=== PATIENT | female | born 1975 | race Caucasian/White ===

== ENCOUNTER 2016-09-19 08:00 | Outpatient (CLI) | payer BC, OTHER | END 2016-09-19 08:01 | disposition home or self-care (01) | DX: M12.872 Other specific arthropathies, not elsewhere classified, left ankle and foot (principal) ==

== ENCOUNTER 2018-02-19 12:42 | Outpatient (CLI) | payer OTHER ==
--- NOTE | 2018-02-19 22:04 | MRI Report ---
Reason: CERVICAL RADICULOPATHY Procedure Date: 02/19/2018 Accession Number: [id number] / [id number] Procedure: MRI - Cervical Spine W/O CPT Code: FULL RESULT: EXAM: MRI CERVICAL SPINE WITHOUT CONTRAST EXAM DATE: 02/19/2018 01:26 PM. CLINICAL HISTORY: Cervical radiculopathy. COMPARISONS: There are 4 views of the cervical spine 01/05/2018. TECHNIQUE: Multiplanar, multisequence T1-weighted and fluid-sensitive sequences of the cervical spine without contrast. Other: None. FINDINGS: The craniocervical junction is normal. There are normal signal intensities demonstrated throughout the cervical spinal cord. There is straightening of the normal cervical lordosis. There is a mild decrease in the height of the disk at C4-C5, C5-C6, and C6-C7. There is mild endplate spondylosis. There is a nonspecific T2 hyperintense left thyroid lobe nodule measuring 6 x 6 x 6 mm. This does not reach current size criteria for the recommendation for additional characterization with thyroid ultrasound according to current imaging recommendation guidelines for incidental thyroid nodules. The bone marrow signal intensities are normal. C2-C3: There is no significant disk bulge, central or foraminal stenosis. The facets are normal. C3-C4: There is no significant disk bulge, central or foraminal stenosis. The facets are normal. C4-C5: There is no significant disk bulge, central or foraminal stenosis. The facets are normal. C5-C6: There is a small disk osteophyte complex producing minimal central canal stenosis. There is mild narrowing of the right neural foramen from uncovertebral hypertrophy. The facets are normal. C6-C7: There is a small disk osteophyte complex with superimposed right paracentral extrusion of the disk producing a mild central canal stenosis. There is no significant foraminal stenosis. The facets are normal. C7-T1: There is no significant disk bulge, central or foraminal stenosis. The facets are normal. T1-T2: There is no significant disk bulge, central or foraminal stenosis. The facets are normal. IMPRESSION: 1. There is a minimal central canal stenosis from a small disk osteophyte complex C5-C6. 2. There is a small disk osteophyte complex with superimposed right paracentral extrusion of the disk producing a mild central canal stenosis.
== END 2018-02-19 12:43 | disposition home or self-care (01) ==
LOC: DI 12:42
PROVIDERS: ATTEND Family Medicine
DX: M50.223 Other cervical disc displacement at C6-C7 level (principal); M47.9 Spondylosis, unspecified; M48.02 Spinal stenosis, cervical region
CPT/HCPCS: 72141

== ENCOUNTER 2021-02-11 08:00 | Outpatient (CLI) | payer OTHER ==
[2021-02-11 12:10] LABS: ALBUMIN 4.8 g/dL (3.2-5.5); ALBUMIN/GLOBULIN RATIO 1.3 (1.0-2.2); BILIRUBIN,TOTAL 0.8 mg/dL (0.2-1.0); CALCIUM 10.1 mg/dL (8.5-10.3); CREATININE 0.7 mg/dL (0.4-1.0); POTASSIUM 4.6 mmol/L (3.5-5.0); TOTAL PROTEIN 8.5 g/dL (6.7-8.2)
[2021-02-11 12:28] LABS: BASOPHILS # (AUTO) 0.1 10^3/uL (0.0-0.1); EOSINOPHILS # (AUTO) 0.3 10^3/uL (0.0-0.7); EOSINOPHILS % (AUTO) 2.3 %; HCT - HEMATOCRIT 47.1 % (37.0-47.0); HGB - HEMOGLOBIN 15.6 g/dL (12.0-16.0); LYMPHOCYTES # (AUTO) 3.2 10^3/uL (1.5-3.5); LYMPHOCYTES % (AUTO) 29.1 %; MEAN CORPUSCULAR HEMOGLOBIN 32.2 pg (27.0-31.0); MEAN CORPUSCULAR HGB CONC 33.1 g/dL (32.0-36.0); MEAN CORPUSCULAR VOLUME 97.3 fL (81.0-99.0); MONOCYTES # (AUTO) 0.6 10^3/uL (0.0-1.0); MONOCYTES % (AUTO) 5.7 %; NEUTROPHILS # (AUTO) 6.8 10^3/uL (1.5-6.6); NEUTROPHILS % (AUTO) 61.7 %; PLT - PLATELET COUNT 340 10^3/uL (130-450); RED BLOOD COUNT 4.84 10^6/uL (4.20-5.40); RED CELL DISTRIBUTION WIDTH 12.5 % (12.0-15.0)
[2021-02-11 12:33] LABS: THYROID STIMULATING HORMONE 2.42 uIU/mL (0.34-5.60)
[2021-02-11 13:02] LABS: FOLLICLE STIMULATING HORMONE 35.66 mIU/mL
== END 2021-02-11 23:59 | disposition home or self-care (01) ==
LOC: LAB.WCP 08:00
PROVIDERS: ATTEND Family Medicine
DX: N95.1 Menopausal and female climacteric states (principal); H04.123 Dry eye syndrome of bilateral lacrimal glands
CPT/HCPCS: 36415; 80053; 81599; 83001; 84443; 85025; 86235

== ENCOUNTER 2022-05-05 06:54 | Outpatient (CLI) | payer OTHER ==
--- NOTE | 2022-05-05 09:48 | Ultrasound Report ---
PROCEDURE: Abdomen Limited INDICATIONS: SPLENIC LESION TECHNIQUE: Real-time focused scanning was performed of the abdomen, with image documentation. COMPARISON: Abdominal ultrasound from [facility] dated 06/11/2018. CT abdomen pelvis from [facility] dated 11/29/2017. FINDINGS: The spleen is normal size, 9.0 cm in length. A possible splenic lesion is present on cine images, krys suring 1.0 cm on image 26. This may correspond to a lesion measuring 1.3 cm on the prior ultrasound. The second splenic lesion seen previously is not identified. IMPRESSION: Possible splenic lesion present which may have slightly decreased compared to the prior ultrasound. T he previously demonstrated second splenic lesion is not identified, unclear if this represents interv al resolution or if the finding was not identified due to technical factors. If further follow-up donny ging is desired, consider CT of the abdomen with contrast to assess for changes in size. It is often difficult or not possible to definitively characterize splenic lesions by imaging alone. Reviewed by: Jarret Barrow MD on 05/05/2022 9:46 AM PST Approved by: Jarret Barrow MD on 05/05/2022 9:46 AM PST Station ID: [id number]
== END 2022-05-05 06:55 | disposition home or self-care (01) ==
LOC: DI 06:54
PROVIDERS: ATTEND Physician Assistant
DX: R93.5 Abnormal findings on diagnostic imaging of other abdominal regions, including retroperitoneum (principal)

== ENCOUNTER 2022-05-05 06:55 | Outpatient (CLI) | payer OTHER ==
--- NOTE | 2022-05-10 10:16 | Mammography Report ---
BILATERAL DIGITAL SCREENING MAMMOGRAM 3D/2D: 05/05/2022 CLINICAL: Routine screening. Baseline exam. No prior exams were available for comparison. Both breasts are heterogeneously dense, which may obscure small masses (category c / 51-75% glandular tissue). No significant masses, calcifications, or other findings are seen in either breast. IMPRESSION: NEGATIVE There is no mammographic evidence of malignancy. A 1 year screening mammogram is recommended. Based on the Tyrer Cuzick model (a risk assessment model) the patients lifetime risk is 9.9% and her 10 year risk is 2.0%. According to the ACR, ACS, and NCCN guidelines, an annual breast MRI exam nina g with mammogram is recommended if the patients lifetime risk is 20% or greater. This exam was interpreted at Station ID: [id number]. NOTE: For mammograms, a report in lay terms will be sent to the patient. Approximately 15% of breast malignancies will not be visualized mammographically. In the management of a palpable breast mass, a negative mammogram must not discourage biopsy of a clinically suspicious lesion. Electronically Signed By: Emilaino Ashford M.D., jr/trina:05/05/2022 11:41:40 ACR BI-RADS Category 1: Negative 3341F PARENCHYMAL PATTERN: (D) - The breast(s) demonstrate(s) heterogeneously dense fibroglandular dhaval stringer. BI-RADS CATEGORY: (1) - 1 RECOMMENDATION: (ANNUAL) - Recommend routine annual screening mammography. [id number] 1 year screening LATERALITY: (B)
== END 2022-05-05 06:56 | disposition home or self-care (01) ==
LOC: DI 06:55
PROVIDERS: ATTEND Physician Assistant
DX: Z12.31 Encounter for screening mammogram for malignant neoplasm of breast (principal)